=== PATIENT | female | born 1975 | race Hispanic/Latino ===

== ENCOUNTER 2022-01-12 01:44 | Emergency (ER) | payer OTHER, SELFPAY ==
[2022-01-12 02:21] LABS: Absolute Lymphocytes (CBC) 2.5 K/uL (0.7-4.9); Hematocrit 43.5 % (36.0-45.0); Lymphocytes % 39.3 % (15.3-44.8); RBC Red Blood Cell Count 4.72 M/uL (3.86-4.86)
[2022-01-12 02:30] LABS: Potassium 3.2 mmol/L (3.5-5.1)
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
[2022-01-12] MEDS ORDERED: POTASSIUM CL SA 10 MEQ TAB PO ONE (04:06)
[2022-01-12] MEDS ORDERED: TETANUS & DIPHTHERIA TOX,ADULT 0.5 ML VIAL ONE (04:08)
[2022-01-12 06:26] VITALS: TEMP 98.3
[2022-01-12 06:29] VITALS: BP 127/91; O2SAT 99
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
== END 2022-01-12 04:29 | disposition home or self-care (01) ==
LOC: ER 01:44
DX: M79.605 Pain in left leg (principal); M25.571 Pain in right ankle and joints of right foot; E87.6 Hypokalemia; V49.40XA Driver injured in collision with unspecified motor vehicles in traffic accident, initial encounter
CPT/HCPCS: 36415; 70450; 71260; 72125; 74177; 80048; 82565; 85025; 86850; 86900; 86901; 90471; 90714; 99284; Q9967